=== PATIENT | male | born 2000 | race Caucasian/White ===

== ENCOUNTER 2021-07-27 14:58 | Observation (INO) | payer OTHER ==
[~2021-07-27] VITALS: Ht 167.6 cm; Wt 66.8 kg
--- NOTE | 2021-07-27 15:12 | PHYS DOC ---
General Adult HPI: HPI: Patient is a 21 a male brought in by EMS for a seizure. Patient was getting his haircut when bystanders noticed him stiffening and convulsing. They stated that episode lasted 1 to 2 minutes was followed by a 5-minute period of confusion. Patient denies any personal or family history of seizures. Denies any recent trauma. Patient states drink alcohol yesterday but does not drink daily. States he uses workout supplements, and has not had any thing to eat today. On EMS arrival blood glucose was 80. Review of Systems: Review of Systems: All other systems within normal limits except for as noted in the HPI Physical Exam: PE: Constitutional: Well developed, well nourished, no acute distress, non-toxic appearance. [] HENT: Normocephalic, atraumatic, bilateral external ears normal, nose normal. [] Eyes: PERRLA, conjunctiva normal, no discharge. [] Neck: No rigidity, supple, no stridor. [] Cardiovascular: Regular rate and rhythm, brisk cap refill [] Lungs & Thorax: Non labored symmetric respirations, no tachypnea or respiratory distress [] Abdomen: Soft, nondistended. Skin: Warm, dry, no erythema, no rash. [] Back: Unremarkable Extremities: No deformities, range of motion grossly intact, no lower extremity edema [] Neurologic: Alert and oriented X 3, no focal deficits noted. [] Psychologic: Affect normal, judgement normal, mood normal. [] EKG: EKG: Sinus rhythm, heart rate 65 beats minute, normal axis, no ST elevation or depression, no ectopy [] Radiology/Procedures: Radiology/Procedures: [address] [address] IMAGING REPORT Signed PATIENT: IRENE FARLEY ACCOUNT: [id number] : 2000 LOCATION: ER AGE: 21 SEX: M EXAM STATUS: REG ER ORD. PHYSICIAN: BYRON TELLES MD REASON: NEW ONSET SEIZURE PROCEDURE: CT HEAD WO CONTRAST CT Head W/O Contrast: History: Reason: NEW ONSET SEIZURE / Spl. Instructions: / History: Comparison: none Axial images were obtained without contrast. The garrett and white matter appears normal and symmetrical for the patients age. There is no mass effect, extraaxial fluid collections or hydrocephalus. There is no gross bleed. There is no focal loss of garrett-white matter distinction to suggest acute ischemia, i.e. stroke. Impression: No acute findings. PQRS Compliance Statement: One or more of the following individualized dose reduction techniques were utilized for this examination: 1. Automated exposure control 2. Adjustment of the mA and/or kV according to patient size 3. Use of iterative reconstruction technique Electronically signed by: Lisa Bell III, MD (07/27/2021 3:31 PM) [facility] DICTATED AND SIGNED BY: LISA BELL III, MD DATE: 07/27/21 1523 CC: BYRON TELLES MD; PCP,UNKNOWN ~MTH0 0 [] Heart Score: C/O Chest Pain: No Risk Factors: Risk Factors: DM, Current or recent (<one month) smoker, HTN, HLP, family history of CAD, obesity. Risk Scores: Score 0 - 3: 2.5% MACE over next 6 weeks - Discharge Home Score 4 - 6: 20.3% MACE over next 6 weeks - Admit for Clinical Observation Score 7 - 10: 72.7% MACE over next 6 weeks - Early Invasive Strategies Course & Med Decision Making: Course & Med Decision Making Pertinent Labs and Imaging studies reviewed. (See chart for details) Concern for new onset seizure in setting of electrolyte abnormalities. Patient also has history of alcohol use and possible alcohol withdrawal. Will admit to hospitalist Dr. Epstein who is requesting the patient be started on 1 g of Keppra twice daily. [] Dragon Disclaimer: Dragon Disclaimer: This electronic medical record was generated, in whole or in part, using a voice recognition dictation system. Departure Departure: Impression: Primary Impression: New onset seizure Additional Impressions: Hypomagnesemia Hypocalcemia Disposition: ADMITTED INPATIENT Admitting Physician: Azael Epstein Condition: STABLE Referrals: PCP,UNKNOWN (PCP) BYRON TELLES MD Jul 27, 2021 15:11
[2021-07-27 15:33] LABS: BASO % 1 % (0-3); EOS # 0.1 x10^3/uL (0.0-0.7); EOS % 2 % (0-3); HEMATOCRIT 44.6 % (39.0-53.0); HEMOGLOBIN 14.7 g/dL (13.0-17.5); LYMPH # 1.7 x10^3/uL (1.0-4.8); LYMPH % 23 % (24-48); MEAN CORPUSCULAR HEMOGLOBIN 32 pg (25-35); MEAN CORPUSCULAR HGB CONC 33 g/dL (31-37); MEAN CORPUSCULAR VOLUME 96 fL (79-100); MONO # 0.5 x10^3/uL (0.0-1.1); MONO % 6 % (0-9); NEUT # 5.1 x10^3uL (1.8-7.7); NEUT % 69 % (31-73); PLATELET COUNT 315 x10^3/uL (140-400); RED BLOOD COUNT 4.66 x10^6/uL (4.30-5.70); RED CELL DISTRIBUTION WIDTH 13.6 % (11.5-14.5); WHITE BLOOD COUNT 7.4 x10^3/uL (4.0-11.0)
--- NOTE | 2021-07-27 15:33 | RAD ---
CT Head W/O Contrast: History: Reason: NEW ONSET SEIZURE / Spl. Instructions: / History: Comparison: none Axial images were obtained without contrast. The garrett and white matter appears normal and symmetrical for the patients age. There is no mass effe ct, extraaxial fluid collections or hydrocephalus. There is no gross bleed. There is no focal loss of garrett-white matter distinction to suggest acute ischemia, i.e. stroke. Impression: No acute findings. RS Compliance Statement: One or more of the following individualized dose reduction techniques were utilized for this examinat ion: 1. Automated exposure control 2. Adjustment of the mA and/or kV according to patient size 3. Use of iterative reconstruction technique Electronically signed by: Jacobo Oh III, MD (07/27/2021 3:31 PM) [facility]
[2021-07-27 15:44] LABS: CALCIUM 6.4 mg/dL (8.5-10.1); CREATININE 0.5 mg/dL (0.7-1.3); GFR 206.1; POTASSIUM 3.3 mmol/L (3.5-5.1)
[2021-07-27 15:55] LABS: ALBUMIN 3.1 g/dL (3.4-5.0); ALBUMIN/GLOBULIN RATIO 1.2 (1.0-1.7); PHOSPHORUS 2.8 mg/dL (2.6-4.7); TOTAL BILIRUBIN 0.2 mg/dL (0.2-1.0); TOTAL PROTEIN 5.6 g/dL (6.4-8.2)
[2021-07-27] MEDS ORDERED: IV NORMAL SALINE 1,000ML 1,000 ML IV ONE (16:00)
[2021-07-27] MEDS ORDERED: CALCIUM GLUCONATE 1,000 MG/10 ML VIAL IV ONE (16:15)
[2021-07-27] MEDS ORDERED: ONDANSETRON PF 4 MG/2 ML VIAL. IVP ONE (16:15)
[2021-07-27] MEDS ORDERED: ONDANSETRON PF 4 MG/2 ML VIAL. IVP PRN (16:45)
[2021-07-27] MEDS ORDERED: MAGNESIUM SULFATE 1GM 100 ML IV ONE (16:45)
[2021-07-27] MEDS ORDERED: ACETAMINOPHEN 325 MG TABLET PO PRN (16:45)
[2021-07-27] MEDS ORDERED: IV NORMAL SALINE 100ML 100 ML ONE (17:33)
[2021-07-27] MEDS ORDERED: levETIRAcetam 500 MG/5 ML VIAL IV ONE (17:34)
[2021-07-27 18:05] LABS: AMPHETAMINE/METHAMPHETAMINE NEG (NEG); BARBITURATES NEG (NEG); BENZODIAZEPINES NEG (NEG); CANNABINOIDS NEG (NEG); COCAINE NEG (NEG); METHADONE NEG (NEG); OPIATES NEG (NEG); PHENCYCLIDINE NEG (NEG)
[2021-07-27 18:10] LABS: BACTERIA,URINE 0 /HPF (0-FEW); BILIRUBIN,URINE NEG (NEG); CLARITY,URINE CLEAR; COLOR,URINE YELLOW; GLUCOSE,URINE NEG (NEG); NITRITE,URINE NEG (NEG); RBC,URINE OCC /HPF (0-2); SQUAMOUS EPITHELIAL CELL,UR FEW /LPF; UROBILINOGEN,URINE 0.2 mg/dL (0.2 mg/dL); WBC,URINE OCC /HPF (0-4)
--- NOTE | 2021-07-27 18:44 | EKG ---
[address] [address] Test Date: 2021-07-27 Test Time: 15:08:40 Pat Name: IRENE FARLEY Department: Room: Gender: M [employer] Set Up Operator: [facility] : 2000 Requested By: BYRON TELLES Order Number: [id number] Reading MD: Emile Calvin MD Measurements Intervals [place] Rate: 65 P: 62 NM: 184 QRS: 76 QRSD: 98 T: 26 QT: 346 QTc: 364 Interpretive Statements SINUS RHYTHM Electronically Signed On 07-30-2021 11:12:23 CDT by Emile Calvin MD
[2021-07-27 20:06] VITALS: BP 118/69
--- NOTE | 2021-07-27 20:07 | NUR ---
The patient, IRENE FARLEY, 21 y/o, M admitted by JOSEFA HORNE MD, to room 117 was given written information regarding hospital policies, unit procedures and contact persons. Valuables were checked and left with the patient.
[2021-07-27 23:00] VITALS: BP 109/68
[2021-07-28 05:14] VITALS: BP 121/74
[2021-07-28 07:43] LABS: BASO # 0.1 x10^3/uL (0.0-0.2); BASO % 1 % (0-3); EOS # 0.2 x10^3/uL (0.0-0.7); EOS % 3 % (0-3); HEMOGLOBIN 14.4 g/dL (13.0-17.5); LYMPH # 2.3 x10^3/uL (1.0-4.8); LYMPH % 28 % (24-48); MEAN CORPUSCULAR HEMOGLOBIN 32 pg (25-35); MEAN CORPUSCULAR HGB CONC 33 g/dL (31-37); MEAN CORPUSCULAR VOLUME 96 fL (79-100); MONO # 0.7 x10^3/uL (0.0-1.1); MONO % 8 % (0-9); NEUT # 5.1 x10^3uL (1.8-7.7); NEUT % 61 % (31-73); PLATELET COUNT 301 x10^3/uL (140-400); RED CELL DISTRIBUTION WIDTH 13.3 % (11.5-14.5); WHITE BLOOD COUNT 8.4 x10^3/uL (4.0-11.0)
[2021-07-28 08:01] LABS: ALBUMIN 3.9 g/dL (3.4-5.0); ALBUMIN/GLOBULIN RATIO 1.1 (1.0-1.7); CALCIUM 9.2 mg/dL (8.5-10.1); CREATININE 1.1 mg/dL (0.7-1.3); POTASSIUM 4.2 mmol/L (3.5-5.1); TOTAL BILIRUBIN 0.4 mg/dL (0.2-1.0); TOTAL PROTEIN 7.5 g/dL (6.4-8.2)
--- NOTE | 2021-07-28 08:04 | DS ---
DATE OF DISCHARGE: 07/28/2021 ATTENDING PHYSICIAN: Dr. Epstein. FINAL DISCHARGE DIAGNOSES: 1. Witnessed grand mal seizure. 2. Alcohol withdrawal seizure. 3. Chronic alcoholism. HISTORY AND PHYSICAL: The patient is a 21-year-old white male, active . He was found to have a witnessed seizure at a [employer] [place]. He had been drinking to excess the night before. PHYSICAL EXAMINATION: Please see the dictated note. PERTINENT LABORATORY AND X-RAY STUDIES: Normal CBC, chemistry panel and normal blood sugar. The obligatory CT of the head done showed no acute pathology. COURSE IN THE HOSPITAL: The patient was admitted and placed on telemetry. He had no rhythm problems. Vital signs were stable. Keppra was started and this will be continued. I saw him and examined him the next day. He is a healthy, developed young male without any underlying illnesses. At this time, he is stable to go home. Strong encouragement to avoid further alcohol use whether or not he will cut back or quit drinking remains to be seen. At this time, the current recommendation is 1-month duration treatment with Keppra 1000 mg p.o. b.i.d. The patient was then discharged from our hospital in stable condition with explicit drug and followup care. [place] I wrote him a script for Keppra. CALEB/SULMA DR: CALEB/cm TID: [id number]
--- NOTE | 2021-07-28 08:39 | HP ---
DATE OF SERVICE: 07/28/2021 ADMIT DATE: 07/27/2021 CHIEF COMPLAINT: Witnessed seizures. HISTORY OF PRESENT ILLNESS: The patient is a 21-year-old male who is otherwise healthy. He is active , currently stationed at [place] [employer]. He had been in [place] the last 2 years. He has been in the [employer] for the last three years. He does drink socially. He was actually having a haircut when he noticed by a bystander to be stiffening and convulsing. This lasted about a minute. He had a 5-minute period of confusion. EMS personnel brought him in. Workup in the ED was unremarkable. He had a normal CBC. CT of the head obligatory was unremarkable. Potassium slightly diminished at 3.3 mEq. This will be addressed. Creatinine was normal. Nonfasting blood sugar was adequate. He has no diabetes or hyperglycemia. The patient was initiated on Keppra at my request. He was admitted overnight for observation. PAST MEDICAL HISTORY: Unremarkable for any seizure disorder SOCIAL HISTORY: He does drink alcohol to excess. He does not use any recreational drugs. No surgeries. ALLERGIES: No known drug allergies. MEDICATIONS: No scheduled meds. No history of hypertension or diabetes. FAMILY HISTORY: Both of the parents are alive and healthy in their early 50s. They live in [place]. He is single. There is no COVID exposure. REVIEW OF SYSTEMS: Significant for the alcohol use. No recent head trauma, falls, accidents. All other systems reviewed and turned out to be negative. PHYSICAL EXAMINATION: GENERAL: When I saw him, this is a very healthy young male. He is well developed. VITAL SIGNS: His initial vital signs showed a blood pressure of 121/74 mmHg, oxygen saturation 99% on room air, pulse is 60 and regular, and he is afebrile. HEENT: Head is without trauma. Pupils are reactive. Sclerae nonicteric. Oropharynx is clear. NECK: Supple, no bruits. LUNGS: Otherwise clear. CARDIOVASCULAR: Regular heart tones. No gallops. ABDOMEN: Soft. EXTREMITIES: Without edema. NEUROLOGIC: Focally intact. The obligatory CT of the head showed no specific abnormalities, otherwise unremarkable without any distinct pathology. His hemoglobin was normal as noted. ASSESSMENT: 1. A 21-year-old healthy male with alcohol-related seizures. He is clinically stable at this time. 2. Chronic alcohol use. PLAN: 1. Observation status. 2. Telemetry monitoring. 3. Intravenous Keppra has been ordered. 4. Diet as tolerated. CALEB/ELZBIETA DR: CALEB/cm TID: [id number]
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
== END 2021-07-28 08:15 | disposition home or self-care (01) ==
LOC: ER 14:58 → 1 SOUTH 16:40
PROVIDERS: ADMIT Hospitalist; ATTEND Hospitalist
DX: G40.409 Other generalized epilepsy and epileptic syndromes, not intractable, without status epilepticus (principal); Z20.822 Contact with and (suspected) exposure to COVID-19; F10.239 Alcohol dependence with withdrawal, unspecified; E83.51 Hypocalcemia; F10.20 Alcohol dependence, uncomplicated; E83.42 Hypomagnesemia; Z72.89 Other problems related to lifestyle
CPT/HCPCS: 36415; 70450; 80053; 80307; 81001; 82550; 83605; 83735; 83874; 84100; 85025; 87426; 93005; 96361; 96365; 96367; 96375; 99285; G0378; G0480; J0610; J1953; J2405; J3475; J7030; U0003; G0379